=== PATIENT | female | born 1965 | race Caucasian/White ===

== ENCOUNTER 2017-08-10 15:59 | Emergency (ER) | payer MEDICAID | END 2017-08-10 18:11 | disposition home or self-care (01) | LOC: ER1 15:59 | DX: L29.9 Pruritus, unspecified (principal); F17.200 Nicotine dependence, unspecified, uncomplicated | CPT/HCPCS: 99282 ==

== ENCOUNTER 2022-02-23 13:32 | Emergency (ER) | payer OTHER ==
[2022-02-23 16:15] LABS: HEMOGLOBIN 15.4 gm/dl (12.3-15.3); RED BLOOD COUNT 5.1 M/UL (4.00-5.10); WHITE BLOOD COUNT 13.4 K/UL (4.5-11.0)
[2022-02-23 16:42] LABS: BUN/CREATININE RATIO 40 (0-10)
== END 2022-02-24 00:55 | disposition short-term general hospital (02) ==
LOC: ER1 13:32
PROVIDERS: Nurse Practitioner
DX: I63.9 Cerebral infarction, unspecified (principal); E03.9 Hypothyroidism, unspecified; R56.9 Unspecified convulsions; F17.210 Nicotine dependence, cigarettes, uncomplicated; R29.701 NIHSS score 1
CPT/HCPCS: 70450; 70496; 70498; 70551; 71045; 80053; 80307; 81001; 82550; 82553; 83605; 84484; 85025; 87040; 93005; 99285; Q9967